=== PATIENT | male | born 2000 | race Caucasian/White ===

== ENCOUNTER 2024-01-27 23:57 | Emergency (ER) | payer MEDICAID ==
[~2024-01-27] VITALS: Ht 165.1 cm; Wt 78.0 kg
[2024-01-28] MEDS ORDERED: DOCU-141 PO (02:43)
[2024-01-28] MEDS ORDERED: POLY17PO4 PO (02:43)
[2024-01-28 02:52] VITALS: BP 130/78; TEMP 99.8; O2SAT 98
== END 2024-01-28 02:53 | disposition home or self-care (01) ==
LOC: ER 01-28 00:02
DX: K59.00 Constipation, unspecified (principal); R10.84 Generalized abdominal pain
CPT/HCPCS: 74018